=== PATIENT | female | born 1995 | race Caucasian/White ===

== ENCOUNTER 2018-01-21 14:31 | Emergency (ER) | payer OTHER ==
[~2018-01-21] VITALS: Ht 165.1 cm; Wt 68.0 kg
[~2018-01-21 14:31] MED LIST: IBUPROFEN600 M1 PO; ULTRAM50 M1 PO
[2018-01-21 14:40] VITALS: BP 124/75
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
[2018-01-22] MEDS ORDERED: NAPROSYN500 M1 PO (12:18)
[2018-01-22] MEDS ORDERED: CYCLOBENZAPRINE10 M1 PO (12:18)
== END 2018-01-21 16:21 ==
LOC: ERH 14:31
DX: S16.1XXA Strain of muscle, fascia and tendon at neck level, initial encounter (principal); S90.31XA Contusion of right foot, initial encounter; R51 Headache; V49.60XA Unspecified car occupant injured in collision with unspecified motor vehicles in traffic accident, initial encounter; Y92.411 Interstate highway as the place of occurrence of the external cause
CPT/HCPCS: 73610-LT; 73630-RT; 81025

== ENCOUNTER 2018-01-22 10:02 | Emergency (ER) | payer OTHER ==
[~2018-01-22] VITALS: Ht 162.6 cm; Wt 68.0 kg
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
[2018-01-22] MEDS ORDERED: CYCLOBENZAPRINE10 M1 PO (12:18)
[2018-01-22] MEDS ORDERED: NAPROSYN500 M1 PO (12:18)
[2018-01-22 12:21] VITALS: BP 110/68
== END 2018-01-22 12:22 ==
LOC: ERH 10:02
DX: S16.1XXA Strain of muscle, fascia and tendon at neck level, initial encounter (principal); S29.011A Strain of muscle and tendon of front wall of thorax, initial encounter; V89.2XXD Person injured in unspecified motor-vehicle accident, traffic, subsequent encounter
CPT/HCPCS: 71046